=== PATIENT | male | born 1975 | race Caucasian/White ===

== ENCOUNTER 2017-01-24 18:45 | Emergency (ER) | payer MEDICAID ==
[2017-01-24] MEDS ORDERED: ACETAMINOPHEN 325 MG TABLET PO ONE (19:09)
--- NOTE | 2017-01-24 19:10 | ER Document Report ---
ED Medical Screen (RME) - General Stated Complaint: LEFT ANKLE INJURY Mode of Arrival: Wheelchair Information source: Patient Notes: Patient states he was jumping on a trampoline and landed on a ball and injured his left foot and ankle. Patient with swelling to left ankle. I have greeted and performed a rapid initial assessment of this patient. A comprehensive ED assessment and evaluation of the patient, analysis of test results and completion of the medical decision making process will be conducted by additional ED providers. TRAVEL OUTSIDE OF THE [place] IN LAST 30 DAYS: No COUNTRY TRAVELED TO/FROM: [place] - Related Data Allergies/Adverse Reactions: No Known Allergies Allergy (Verified 09/14/16 14:28) Past Medical History - Past Medical History Cardiac Medical History: Reports: Hx Hypertension Pulmonary Medical History: Reports: Hx COPD Endocrine Medical History: Denies: Hx Diabetes Mellitus Type 1, Hx Diabetes Mellitus Type 2 GI Medical History: Reports: Hx Gastroesophageal Reflux Disease - Immunizations Immunizations up to date: Yes Hx Diphtheria, Pertussis, Tetanus Vaccination: Yes - UTD Physical Exam - Vital signs Vitals: Temp Pulse Resp BP Pulse Ox 98.4 F 87 20 150/107 H 97 01/24/17 18:49 01/24/17 18:49 01/24/17 18:49 01/24/17 18:49 01/24/17 18:49 - Extremities General lower extremity: Tender - Left ankle Course - Vital Signs Vital signs: Temp Pulse Resp BP Pulse Ox 98.4 F 87 20 150/107 H 97 01/24/17 18:49 01/24/17 18:49 01/24/17 18:49 01/24/17 18:49 01/24/17 18:49
[2017-01-24] MEDS ORDERED: HYDROCODONE/ACETAMINOPHEN 5-325 MG TABLET PO ONE (22:19)
--- NOTE | 2017-01-24 22:22 | ER Document Report ---
ED Extremity Problem, Lower - General Chief Complaint: Ankle Pain Stated Complaint: LEFT ANKLE INJURY Mode of Arrival: Wheelchair Information source: Patient Notes: 41 y/o M presents to the emergency department complaining of left ankle pain and swelling. Patient reports was jumping on trampoline this afternoon when he lost his balance and rolled his ankle. Reports pain is worse with movement of ankle and attempts at weightbearing. Denies numbness, tingling, or color changes. TRAVEL OUTSIDE OF THE [place] IN LAST 30 DAYS: No - HPI Patient complains to provider of: Pain, Swelling Location: Ankle Occurred: This afternoon Onset/Duration: Sudden, Persistent Quality of pain: Achy Severity: Moderate Pain Level: 3 Context: Fell, Twisted Recent injury: Possibly Associated symptoms: School[place] a pop, Painful ambulation Exacerbated by: Movement, Walking Relieved by: Elevation, Ice, Rest - Related Data Allergies/Adverse Reactions: No Known Allergies Allergy (Verified 01/24/17 19:12) Past Medical History - General Information source: Patient - Social History Smoking Status: Current Every Day Smoker Chew tobacco use (# tins/day): No Frequency of alcohol use: None Drug Abuse: None Lives with: Family Family History: Reviewed & Not Pertinent Patient has suicidal ideation: No Patient has homicidal ideation: No - Past Medical History Cardiac Medical History: Reports: Hx Hypertension Pulmonary Medical History: Reports: Hx COPD Endocrine Medical History: Denies: Hx Diabetes Mellitus Type 1, Hx Diabetes Mellitus Type 2 Renal/ Medical History: Denies: Hx Peritoneal Dialysis GI Medical History: Reports: Hx Gastroesophageal Reflux Disease Surgical Hx: Negative - Immunizations Immunizations up to date: Yes Hx Diphtheria, Pertussis, Tetanus Vaccination: Yes - UTD Review of Systems - Review of Systems Constitutional: No symptoms reported EENT: No symptoms reported Cardiovascular: No symptoms reported Respiratory: No symptoms reported Gastrointestinal: No symptoms reported Genitourinary: No symptoms reported Male Genitourinary: No symptoms reported Musculoskeletal: See HPI Skin: No symptoms reported Hematologic/Lymphatic: No symptoms reported Neurological/Psychological: No symptoms reported -: Yes All other systems reviewed and negative Physical Exam - Vital signs Vitals: Temp Pulse Resp BP Pulse Ox 98.4 F 87 20 150/107 H 97 01/24/17 18:49 01/24/17 18:49 01/24/17 18:49 01/24/17 18:49 01/24/17 18:49 Interpretation: Normal - General General appearance: Appears well, Alert In distress: None - HEENT Head: Normocephalic, Atraumatic Eyes: Normal Pupils: PERRL - Respiratory Respiratory status: No respiratory distress Chest status: Nontender Breath sounds: Normal Chest palpation: Normal - Cardiovascular Rhythm: Regular Heart sounds: Normal auscultation Murmur: No Pulses: Normal: Radial, Posterior tibial, Dorsalis pedis Normal capillary refill: Yes - Abdominal Inspection: Normal Distension: No distension Bowel sounds: Normal Tenderness: Nontender Organomegaly: No organomegaly - Back Back: Normal, Nontender - Extremities General upper extremity: Normal inspection, Nontender, Normal color, Normal ROM , Normal strength, Normal temperature. No: Tender, Edema General lower extremity: Normal inspection, Nontender, Normal color, Normal ROM , Normal strength, Normal temperature, Normal weight bearing. No: Tender Knee: Normal, Nontender Calf: Normal, Nontender Ankle: Tender - Diffuse tenderness to palpation to left ankle mostly around lateral malleolus. Mild localized swelling. Limited range of motion due to pain. No gross instability or deformity. Neurovascular function intact with immediate capillary refill and intact distal sensation., Edema, Limited ROM. No : Deformity, Ecchymosis, Instability Foot: Normal, Nontender - Neurological Neuro grossly intact: Yes Cognition: Normal Orientation: AAOx4 Leobardo Coma Scale Eye Opening: Spontaneous [place] Coma Scale Verbal: Oriented Leobardo Coma Scale Motor: Obeys Commands Leobardo Coma Scale Total: 15 Speech: Normal Motor strength normal: LUE, RUE, LLE, RLE Sensory: Normal - Psychological Associated symptoms: Normal affect, Normal mood - Skin Skin Temperature: Warm Skin Moisture: Dry Skin Color: Normal Course - Re-evaluation Re-evalutation: 01/24/17 22:22 Patient hemodynamically stable, in no distress. Avulsion-type fracture to left lateral malleolus with no other osseous injury of the ankle or foot on x-ray. Neurovascular function intact. Ankle stirrup splint placed and crutches provided with instructions on use. Patient is stable for discharge and agrees with home care, follow-up with PCP and orthopedics, and ED return precautions. - Vital Signs Vital signs: Temp Pulse Resp BP Pulse Ox 98.4 F 87 20 150/107 H 97 01/24/17 18:49 01/24/17 18:49 01/24/17 18:49 01/24/17 18:49 01/24/17 18:49 - Diagnostic Test Radiology reviewed: Image reviewed, Reports reviewed Procedures - Immobilization Left Ankle Time completed: 22:26 Pre-Proc Neuro Vasc Exam: Normal Immobilizer type: Ankle stirrup, Crutches Performed by: RN Post-Proc Neuro Vasc Exam: Normal Alignment checked and good: Yes Discharge - Discharge Clinical Impression: Avulsion fracture of left ankle Qualifiers: Encounter type: initial encounter Fracture type: closed Qualified Code(s): S82.892A - Other fracture of left lower leg, initial encounter for closed fracture Condition: Stable Disposition: HOME, SELF-CARE Instructions: Avulsion Fracture of the Ankle ([facility]), Ice & Elevation ([facility]), Use of Crutches ([facility]), Anti-Inflammatory Medication ([facility]), Ultram ([facility]) Additional Instructions: Follow-up with your primary care provider next week as discussed. Return to the emergency department for any worsening symptoms or concerns. Prescriptions: Tramadol HCl [Ultram] 50 mg PO Q8HP PRN #10 tablet PRN Reason: Naproxen 500 mg PO BIDP PRN #10 tablet PRN Reason: Forms: Elevated Blood Pressure Referrals: [facility] [Provider Group] - Follow up as needed
[2017-01-24] MEDS ORDERED: TRAMADOL HCL 50 MG TABLET PO ONE (22:23)
[2017-01-24] MEDS ORDERED: NAPROXEN 250 MG TABLET PO ONE (22:23)
[2017-01-24 22:56] VITALS: BP 134/80
== END 2017-01-24 22:55 | disposition home or self-care (01) ==
LOC: ER 18:45
DX: S82.62XA Displaced fracture of lateral malleolus of left fibula, initial encounter for closed fracture (principal); X50.0XXA Overexertion from strenuous movement or load, initial encounter; Y93.44 Activity, trampolining; F17.200 Nicotine dependence, unspecified, uncomplicated; I10 Essential (primary) hypertension; E11.9 Type 2 diabetes mellitus without complications; J44.9 Chronic obstructive pulmonary disease, unspecified
CPT/HCPCS: 99283; 73610; 73630; L1902; J3490 ×2

== ENCOUNTER 2017-02-12 18:03 | Emergency (ER) | payer MEDICAID ==
[2017-02-12 18:21] VITALS: BP 115/71
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
== END 2017-02-12 22:10 | disposition left against medical advice (07) ==
LOC: ER 18:03
DX: S61.213A Laceration without foreign body of left middle finger without damage to nail, initial encounter (principal); S61.215A Laceration without foreign body of left ring finger without damage to nail, initial encounter; W25.XXXA Contact with sharp glass, initial encounter; E11.9 Type 2 diabetes mellitus without complications; I10 Essential (primary) hypertension; J44.9 Chronic obstructive pulmonary disease, unspecified
CPT/HCPCS: 99281

== ENCOUNTER 2017-05-20 10:23 | Emergency (ER) | payer MEDICAID ==
[2017-05-20 10:57] VITALS: BP 185/125
[2017-05-20] MEDS ORDERED: IBUPROFEN 600 MG TABLET PO ONE (12:19)
[2017-05-20] MEDS ORDERED: CEPHALEXIN 500 MG CAPSULE PO ONE (12:19)
[2017-05-20] MEDS ORDERED: DIPH/PERTUSS(ACELL)/TETANUS VAC/PF 0.5 ML SYR (>=10YO) IM ONE (12:24)
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
== END 2017-05-20 13:19 | disposition home or self-care (01) ==
LOC: ER 10:23
DX: L03.115 Cellulitis of right lower limb (principal); L90.5 Scar conditions and fibrosis of skin; E11.9 Type 2 diabetes mellitus without complications; I10 Essential (primary) hypertension; J44.9 Chronic obstructive pulmonary disease, unspecified; F17.200 Nicotine dependence, unspecified, uncomplicated; Z23 Encounter for immunization
CPT/HCPCS: 99283; 90471; 90715; J3490

== ENCOUNTER 2017-10-31 10:24 | Emergency (ER) | payer MEDICAID ==
[2017-10-31 10:29] VITALS: BP 143/95
--- NOTE | 2017-10-31 11:38 | RADIOLOGY REPORT (SQ) ---
EXAM DESCRIPTION: SHOULDER LEFT 2 OR MORE VIEWS COMPLETED DATE/TIME: 10/31/2017 11:30 am REASON FOR STUDY: pain and injury COMPARISON: None. NUMBER OF VIEWS: Three views. TECHNIQUE: Internal rotation, external rotation, and Y view images acquired of the left shoulder. LIMITATIONS: None. FINDINGS: MINERALIZATION: Normal. BONES: No acute fracture or dislocation. No worrisome bone lesions. JOINTS: No dislocation. VISUALIZED LUNGS AND RIBS: No pneumothorax. No rib fracture. SOFT TISSUES: No radiopaque foreign body. OTHER: No other significant finding. IMPRESSION: NEGATIVE STUDY OF THE LEFT SHOULDER. NO RADIOGRAPHIC EVIDENCE OF ACUTE INJURY. TECHNICAL DOCUMENTATION: JOB ID: [id number] [employer]- All Rights Reserved
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
[2017-10-31] MEDS ORDERED: LIDOCAINE 5% (700 MG) TRANSDERMAL ADH..PATCH TP ONE (11:56)
[2017-10-31] MEDS ORDERED: NAPROXEN 250 MG TABLET PO ONE (11:56)
== END 2017-10-31 12:14 | disposition home or self-care (01) ==
LOC: ER 10:24
DX: M25.512 Pain in left shoulder (principal); X50.0XXA Overexertion from strenuous movement or load, initial encounter; I10 Essential (primary) hypertension; J44.9 Chronic obstructive pulmonary disease, unspecified; F17.210 Nicotine dependence, cigarettes, uncomplicated
CPT/HCPCS: 99283; 73030; J3490 ×2

== ENCOUNTER → 2017-11-28 | Day surgery (SDC) | payer MEDICAID ==
[~2017-11-28] MED LIST: BUPIVACAINE HCL 0.5 % INJ/PF 30 ML SDV ONE; LIDOCAINE 1% INJ-PF (10 MG/ML) 30 ML SDV ONE; METHYLPREDNISOLONE ACETATE INJ 40 MG/1 ML ML ONE
--- NOTE | 2017-11-28 16:43 | RADIOLOGY REPORT (SQ) ---
EXAM DESCRIPTION: HIP UNILATERAL-1 VIEW; INJECT/ASPIR HIP/SHLDR/KNEE; FLUORO/NEEDLE PLACEMENT COMPLETED DATE/TIME: 11/28/2017 3:39 pm REASON FOR STUDY: RIGHT HIP PAIN (M25.551) M25.551 PAIN IN RIGHT HIP COMPARISON: Hip films 11/29/2016, 11/04/2016 FLUOROSCOPY TIME: 0.9 minutes 1 digital radiographic images saved to PACS. LIMITATIONS: None. PROCEDURE: SITE OF INJECTION: Right hip joint LOCALIZING CONTRAST TYPE AND DOSE: 1 mL of Isovue-300 injected to confirm intra articular needle plac ement MEDICATION TYPE AND DOSE: 80 mg of Depo-Medrol, 0.5 mL of 0.5% bupivacaine Using local anesthesia and sterile technique with fluoroscopic guidance, a 22 gauge spinal needle was advanced into the joint. Iodinated contrast was injected to verify intraarticular placement. This w as followed by therapeutic injection of the indicated medications. The needle was removed. There we re no immediate complications. Preprocedure pain level: 7/10. Postprocedure pain level: 4/10. IMPRESSION: THERAPEUTIC INJECTION OF THE RIGHT HIP JOINT ABOVE. COMMENT: Patient medication list reviewed: Yes- Quality ID# [id number]:Eligible professional attests to doc umenting in the medical record they obtained, updated, or reviewed the patient's current medications. . Quality ID [id number]: Final reports for procedures using fluoroscopy that document radiation exposure yvette najma, or exposure time and number of fluorographic images (if radiation exposure indices are not avail able) TECHNICAL DOCUMENTATION: JOB ID: [id number] [employer]- All Rights Reserved
== END ==
LOC: RAD 14:19
PROVIDERS: ATTEND Physician Assistant
PROC: 3E0U33Z Introduction of Anti-inflammatory into Joints, Percutaneous Approach (ICD-10-PCS; principal; 2017-11-28)
DX: M25.551 Pain in right hip (principal)
CPT/HCPCS: 73501; 20610; 77002; J3490; J1020

== ENCOUNTER → 2018-01-07 | Outpatient (CLI) | payer MEDICAID ==
--- NOTE | 2018-01-07 14:15 | RADIOLOGY REPORT (SQ) ---
EXAM DESCRIPTION: MRI LT UPPER JOINT WITHOUT COMPLETED DATE/TIME: 01/07/2018 1:18 pm REASON FOR STUDY: LT SHOULDER PAIN (M25.512) M25.512 PAIN IN LEFT SHOULDER COMPARISON: None. TECHNIQUE: Left shoulder images acquired and stored on PACS. Multiplanar imaging to include fat sens itive sequences such as T1, water sensitive sequences such as FST2/STIR, cartilage sensitive sequence s such as FSPD/gradient-echo sequences. LIMITATIONS: None. FINDINGS: BONE MARROW AND CORTEX: No marrow signal abnormalities worrisome for occult fracture. The re is edema in the distal clavicle and acromion at the AC joint. JOINT OR BURSAL EFFUSION: No significant joint or bursal fluid. No suggestion of loose bodies. GLENO-HUMERAL ARTICULATION: Normal articulation. No subluxation. No cystic change. No osteophytes or cartilage loss. ACROMION AND AC JOINT: Type 1 acromion, narrowing the subacromial space. There is edema in the dista l clavicle and acromion at the acromioclavicular joint with synovial thickening. No bulky bony spurr ing. These findings are best shown on coronal images 7-11, and sagittal images 8-12. ROTATOR CUFF AND INTERVAL: No significant tear or signal alteration. No cuff muscle atrophy. No rotator interval tear. No rotator interval thickening to suggest adhesive capsulitis. LABRUM AND BICEPS LABRAL COMPLEX: Intra-articular long head biceps tendon intact. Biceps insertion on the labrum intact. There is a small posterosuperior labral tear with 2 mm paralabral cyst, best shown on sagittal image 13, axial image 6 and coronal image 10. Remainder of the superior labrum is otherwise unremarkable REMAINDER OF LABRUM AND IGHL : No gross tear or paralabral cyst formation. Labral evaluation is less than optimal without joint distention. No thickening of IGHL to suggest adhesive capsulitis. PERIARTICULAR AND ADJACENT SOFT TISSUES: No masses or abnormal nodes. OTHER: No other significant finding. IMPRESSION: Acromioclavicular joint arthropathy Tiny posterosuperior labral tear with 2 mm paralabral cyst TECHNICAL DOCUMENTATION: JOB ID: [id number] [employer]- All Rights Reserved
== END ==
LOC: RAD 12:28
PROVIDERS: ATTEND Physician Assistant
DX: M25.512 Pain in left shoulder (principal); M12.812 Other specific arthropathies, not elsewhere classified, left shoulder

== ENCOUNTER → 2018-02-12 | Outpatient (CLI) | payer MEDICAID ==
--- NOTE | 2018-02-12 10:01 | RADIOLOGY REPORT (SQ) ---
EXAM DESCRIPTION: U/S ABDOMEN LIMITED W/O DOP COMPLETED DATE/TIME: 02/12/2018 9:43 am REASON FOR STUDY: NAUSEA WITH VOMTING R11.2 NAUSEA WITH VOMITING, UNSPECIFIED COMPARISON: None. TECHNIQUE: Dynamic and static grayscale images acquired of the abdomen and recorded on PACS. Additio nal selected color Doppler and spectral images recorded. LIMITATIONS: None. FINDINGS: PANCREAS: No masses. Visualized pancreatic duct normal caliber. LIVER: No masses. Echotexture normal. LIVER VASCULATURE: Normal directional flow of the main portal vein and hepatic veins. GALLBLADDER: No stones. Normal wall thickness. No pericholecystic fluid. ULTRASOUND-DETECTED BERMAN'S SIGN: Negative. INTRAHEPATIC DUCTS AND COMMON DUCT: CBD and intrahepatic ducts normal caliber. No filling defects. INFERIOR VENA CAVA: Normal flow. AORTA: Proximal and mid aorta normal caliber. Distal aorta obscured by bowel gas. RIGHT KIDNEY: Normal size. Normal echogenicity. 1.5 cm cyst. No solid or suspicious masses. No hyd ronephrosis. No calcifications. PERITONEAL AND RIGHT PLEURAL SPACE: No ascites or effusions. OTHER: No other significant findings. IMPRESSION: 1.5 CM CYST IN THE RIGHT KIDNEY. OTHERWISE UNREMARKABLE RIGHT UPPER QUADRANT ULTRASOUND . TECHNICAL DOCUMENTATION: JOB ID: [id number] [employer]- All Rights Reserved Reading location - IP/workstation name: [facility]
== END ==
LOC: RAD 08:13
PROVIDERS: ATTEND Internal Medicine Gastroenterology
DX: R11.2 Nausea with vomiting, unspecified (principal)
CPT/HCPCS: 76705

== ENCOUNTER → 2018-02-23 | Outpatient (CLI) | payer MEDICAID ==
[2018-02-23 12:10] LABS: ABSOLUTE BASOPHILS # (AUTO) 0.1 10^3/uL (0.0-0.2); ABSOLUTE EOSINOPHILS # (AUTO) 0.2 10^3/uL (0.0-0.6); ABSOLUTE LYMPHOCYTES (AUTO) 2.2 10^3/uL (0.5-4.7); ABSOLUTE MONOCYTES (AUTO) 0.8 10^3/uL (0.1-1.4); ABSOLUTE NEUT (AUTO) 8.1 10^3/uL (1.7-8.2); BASOPHILS % (AUTO) 0.5 % (0-2); EOSINOPHILS % (AUTO) 1.4 % (0-6); HEMATOCRIT 48.4 % (37.9-51.0); LYMPHOCYTES % (AUTO) 19.4 % (13-45); MEAN CORPUSCULAR HEMOGLOBIN 32.4 pg (27.0-33.4); MEAN CORPUSCULAR HGB CONC 35.1 g/dL (32.0-36.0); MEAN CORPUSCULAR VOLUME 92 fl (80-97); MONOCYTES % (AUTO) 7.2 % (3-13); PLATELET COUNT 356 10^3/uL (150-450); RED BLOOD COUNT 5.25 10^6/uL (4.35-5.55); RED CELL DISTRIBUTION WIDTH 14.4 % (11.5-14.0); SEGMENTED NEUTROPHILS % (AUTO) 71.5 % (42-78); TOTAL CELLS COUNTED % (AUTO) 100 %; WHITE BLOOD COUNT 11.4 10^3/uL (4.0-10.5)
[2018-02-23 12:40] LABS: ALANINE AMINOTRANSFERASE 34 U/L (21-72); ALBUMIN 4.9 g/dL (3.5-5.0); ALKALINE PHOSPHATASE 80 U/L (38-126); ANION GAP 10 (5-19); ASPARTATE AMINO TRANSFERASE 20 U/L (17-59); BILIRUBIN,DIRECT 0.4 mg/dL (0.0-0.4); BILIRUBIN,TOTAL 0.4 mg/dL (0.2-1.3); BLOOD UREA NITROGEN 17 mg/dL (7-20); CALCIUM 10.5 mg/dL (8.4-10.2); CARBON DIOXIDE 26 mmol/L (22-30); CHLORIDE 102 mmol/L (98-107); GLUCOSE 111 mg/dL (75-110); SODIUM 138.4 mmol/L (137-145); TOTAL PROTEIN 8.3 g/dL (6.3-8.2)
--- NOTE | 2018-02-23 14:13 | EKG REPORT ---
SEVERITY:- NORMAL ECG - SINUS RHYTHM : Confirmed by: Richar Desai MD 23-Feb-2018 14:12:46
== END ==
LOC: OD 11:00
PROVIDERS: ATTEND Orthopaedic Surgery Sports Medicine
DX: I10 Essential (primary) hypertension (principal); Z11.2 Encounter for screening for other bacterial diseases
CPT/HCPCS: 36415; 80053; 85025; 87070; 93005; 93010

== ENCOUNTER → 2018-03-09 | Outpatient (CLI) | payer MEDICAID ==
--- NOTE | 2018-03-09 11:58 | RADIOLOGY REPORT (SQ) ---
EXAM DESCRIPTION: NM GASTRIC EMPTYING STUDY COMPLETED DATE/TIME: 03/09/2018 11:28 am REASON FOR STUDY: EARLY SATIETY (R68.81), N/V (R11.2), ABD TENDERNESS (R10.816) R68.81 EARLY SATIET Y R11.2 NAUSEA WITH VOMITING, UNSPECIFIED R10.816 EPIGASTRIC ABDOMINAL TENDERNESS COMPARISON: Abdominal ultrasound 02/12/2018 RADIONUCLIDE AND DOSE: 2.2 millicuries Tc-99m Sulfur Colloid. The route of agent administration: Oral. TECHNIQUE: Serial images acquired to 90 minutes with each image recorded over a 2-minute time frame. Image intensity values plotted with respect to time with linear regression algorithm. LIMITATIONS: None. FINDINGS: Gastric emptying was calculated as follows: At 30 minutes, 20% gastric emptying At 60 minutes, 40% gastric emptying At 90 minutes, 60% gastric emptying At 120 minutes, 80% gastric emptying At 180 minutes, 100% gastric emptying IMPRESSION: NORMAL GASTRIC EMPTYING. TECHNICAL DOCUMENTATION: JOB ID: [id number] [employer]- All Rights Reserved Reading location - IP/workstation name: [email or web address]
== END ==
LOC: RAD 07:45
PROVIDERS: ATTEND Internal Medicine Gastroenterology
DX: R11.2 Nausea with vomiting, unspecified (principal); R68.81 Early satiety; R10.816 Epigastric abdominal tenderness
CPT/HCPCS: 78264; A9541

== ENCOUNTER 2018-03-30 15:12 | Emergency (ER) | payer MEDICAID ==
[2018-03-30] MEDS ORDERED: NORMAL SALINE 1000 ML 1,000 ML IV ONE ×2 (16:23→17:30)
[2018-03-30] MEDS ORDERED: VANCOMYCIN HCL INJ 1000 MG VIAL IV ONE ×2 (16:24→20:00)
--- NOTE | 2018-03-30 16:25 | ER Document Report ---
ED Medical Screen (RME) - General Chief Complaint: Fever Stated Complaint: DIZZY,FEVER,WEAK, ANKLE PAIN Time Seen by Provider: 03/30/18 16:23 Notes: Patient states approximately 2 days ago he fell through the floor of a wood shed. He states he had a long splinter in his right ankle area. He removed the splinter of wood. He states he went to sleep and then when he awoke from a nap he noticed that his right ankle was swollen red and painful. He states it is gotten worse over the last 2 days. He now feels dizzy lightheaded and has a headache. TRAVEL OUTSIDE OF THE [place] IN LAST 30 DAYS: No - Related Data Allergies/Adverse Reactions: No Known Allergies Allergy (Verified 10/31/17 10:27) Home Medications: lisinopril. meloxacam Past Medical History - Social History Chew tobacco use (# tins/day): No Frequency of alcohol use: Occasional Drug Abuse: None - Past Medical History Cardiac Medical History: Reports: Hx Hypertension Pulmonary Medical History: Reports: Hx COPD Endocrine Medical History: Denies: Hx Diabetes Mellitus Type 1, Hx Diabetes Mellitus Type 2 Renal/ Medical History: Denies: Hx Peritoneal Dialysis GI Medical History: Reports: Hx Gastroesophageal Reflux Disease, Hx Ulcer Musculoskeltal Medical History: Reports Hx Musculoskeletal Deformity, Reports Hx Musculoskeletal Trauma Traumatic Medical History: Reports: Hx Fractures - radius - Immunizations Immunizations up to date: Yes Hx Diphtheria, Pertussis, Tetanus Vaccination: Yes - UTD Physical Exam - Vital signs Vitals: Temp Pulse Resp BP Pulse Ox 98.6 F 125 H 16 104/64 97 03/30/18 15:52 03/30/18 15:52 03/30/18 15:52 03/30/18 15:52 03/30/18 15:52 Course - Vital Signs Vital signs: Temp Pulse Resp BP Pulse Ox 98.6 F 125 H 16 104/64 97 03/30/18 15:52 03/30/18 15:52 03/30/18 15:52 03/30/18 15:52 03/30/18 15:52 Doctor's Discharge - Discharge Referrals: NIK COBURN MD [Primary Care Provider] - Follow up as needed
[2018-03-30] MEDS ORDERED: PIPERACILLIN/TAZOBACTAM 3.375 GM VIAL IV ONE (16:26)
[2018-03-30] MEDS ORDERED: ONDANSETRON HCL INJ/PF 4 MG/2 ML SDV IV ONE (17:42)
[2018-03-30] MEDS ORDERED: PROCHLORPERAZINE EDISYLATE INJ 10 MG/2 ML VIAL IV ONE (17:42)
[2018-03-30 17:58] LABS: VENOUS BLOOD BASE EXCESS 1.4 mmol/L; VENOUS BLOOD PCO2 32.5 mmHg (35-63); VENOUS BLOOD PH 7.49 (7.30-7.42)
[2018-03-30 18:01] LABS: ABSOLUTE LYMPHOCYTES (AUTO) 1.9 10^3/uL (0.5-4.7); ABSOLUTE MONOCYTES (AUTO) 1.2 10^3/uL (0.1-1.4); ABSOLUTE NEUT (AUTO) 14.4 10^3/uL (1.7-8.2); BASOPHILS % (AUTO) 0.3 % (0-2); EOSINOPHILS % (AUTO) 0.1 % (0-6); HEMATOCRIT 41.9 % (37.9-51.0); HEMOGLOBIN 14.9 g/dL (13.5-17.0); MEAN CORPUSCULAR HEMOGLOBIN 32.1 pg (27.0-33.4); MEAN CORPUSCULAR HGB CONC 35.5 g/dL (32.0-36.0); MEAN CORPUSCULAR VOLUME 91 fl (80-97); MONOCYTES % (AUTO) 6.7 % (3-13); PLATELET COUNT 329 10^3/uL (150-450); RED BLOOD COUNT 4.63 10^6/uL (4.35-5.55); RED CELL DISTRIBUTION WIDTH 13.4 % (11.5-14.0); SEGMENTED NEUTROPHILS % (AUTO) 81.9 % (42-78); TOTAL CELLS COUNTED % (AUTO) 100 %; WHITE BLOOD COUNT 17.6 10^3/uL (4.0-10.5)
[2018-03-30 18:15] LABS: ALANINE AMINOTRANSFERASE 22 U/L (21-72); ALBUMIN 4.5 g/dL (3.5-5.0); ALKALINE PHOSPHATASE 83 U/L (38-126); ANION GAP 15 (5-19); ASPARTATE AMINO TRANSFERASE 45 U/L (17-59); BILIRUBIN,DIRECT 0.5 mg/dL (0.0-0.4); BILIRUBIN,TOTAL 0.8 mg/dL (0.2-1.3); BLOOD UREA NITROGEN 14 mg/dL (7-20); CALCIUM 9.3 mg/dL (8.4-10.2); CARBON DIOXIDE 23 mmol/L (22-30); CHLORIDE 88 mmol/L (98-107); GLUCOSE 104 mg/dL (75-110); POTASSIUM 3.7 mmol/L (3.6-5.0); SODIUM 126.1 mmol/L (137-145)
--- NOTE | 2018-03-30 18:19 | RADIOLOGY REPORT (SQ) ---
EXAM DESCRIPTION: ANKLE RIGHT COMPLETE COMPLETED DATE/TIME: 03/30/2018 6:11 pm REASON FOR STUDY: medial cellulitis COMPARISON: None. NUMBER OF VIEWS: Three views. TECHNIQUE: AP, lateral, and oblique radiographic images acquired of the right ankle. LIMITATIONS: None. FINDINGS: MINERALIZATION: Normal. BONES: No acute fracture or dislocation. No worrisome bone lesions. JOINTS: No effusions. SOFT TISSUES: No soft tissue swelling. No foreign body. OTHER: No other significant finding. IMPRESSION: NEGATIVE STUDY OF THE RIGHT ANKLE. NO RADIOGRAPHIC EVIDENCE OF ACUTE INJURY. No radio o paque foreign body. COMMENT: Consider ultrasound of if suspect persistent foreign body. . TECHNICAL DOCUMENTATION: JOB ID: [id number] [employer]- All Rights Reserved Reading location - IP/workstation name: [email or web address]
[2018-03-30] MEDS ORDERED: KETOROLAC TROMETHAMINE INJ/PF 30 MG/1 ML SDV IV ONE (18:22)
[2018-03-30 19:57] LABS: APPEARANCE,URINE CLEAR; BILIRUBIN,URINE NEGATIVE (NEGATIVE); COLOR,URINE YELLOW; GLUCOSE, URINE NEGATIVE (NEGATIVE); KETONES,URINE NEGATIVE (NEGATIVE); LEUKOCYTE ESTERASE,URINE NEGATIVE (NEGATIVE); NITRITE,URINE NEGATIVE (NEGATIVE); PROTEIN,URINE NEGATIVE (NEGATIVE); URINE SPECIFIC GRAVITY 1.008; UROBILINOGEN,URINE NEGATIVE mg/dL (<2.0)
[2018-03-30 20:17] LABS: URINE AMPHETAMINES SCREEN NEGATIVE; URINE BARBITURATES SCREEN NEGATIVE; URINE BENZODIAZEPINES SCREEN UNCONFIRMED POSITIVE; URINE COCAINE SCREEN NEGATIVE; URINE MARIJUANA (THC) SCREEN UNCONFIRMED POSITIVE; URINE METHADONE SCREEN NEGATIVE; URINE PHENCYCLIDINE SCREEN NEGATIVE
[2018-03-30] MEDS ORDERED: CEPHALEXIN 500 MG CAPSULE PO ONE (21:03)
--- NOTE | 2018-03-30 21:45 | ER Document Report ---
ED General - General Chief Complaint: Fever Stated Complaint: DIZZY,FEVER,WEAK, ANKLE PAIN Time Seen by Provider: 03/30/18 16:23 TRAVEL OUTSIDE OF THE [place] IN LAST 30 DAYS: No - HPI Patient complains to provider of: Fevers dizziness ankle pain Notes: Patient coming in for right ankle pain. Patient states had a splinter in his ankle this is on Friday now has diffuse redness. Patient also states fever at home however did not take a temperature. Patient also complaining of diffuse weakness and dizziness. Patient sent to be tachycardic upon his evaluation in triage. Patient states she has not been eating or drinking as much as he normally has. Patient otherwise denies any other complaints denies any nausea vomiting diarrhea chest pain abdominal pain. Patient looks to be otherwise stable. - Related Data Allergies/Adverse Reactions: No Known Allergies Allergy (Verified 10/31/17 10:27) Home Medications: lisinopril. meloxacam Past Medical History - Social History Smoking Status: Current Every Day Smoker Chew tobacco use (# tins/day): No Frequency of alcohol use: Occasional Drug Abuse: None Family History: Arthritis, CAD, COPD, CVA, DM, Hyperlipidemia, Hypertension Patient has suicidal ideation: No Patient has homicidal ideation: No - Past Medical History Cardiac Medical History: Reports: Hx Hypertension Pulmonary Medical History: Reports: Hx COPD Endocrine Medical History: Denies: Hx Diabetes Mellitus Type 1, Hx Diabetes Mellitus Type 2 Renal/ Medical History: Denies: Hx Peritoneal Dialysis GI Medical History: Reports: Hx Gastroesophageal Reflux Disease, Hx Ulcer Musculoskeltal Medical History: Reports Hx Musculoskeletal Deformity, Reports Hx Musculoskeletal Trauma Traumatic Medical History: Reports: Hx Fractures - radius - Immunizations Immunizations up to date: Yes Hx Diphtheria, Pertussis, Tetanus Vaccination: Yes - UTD Review of Systems - Review of Systems Constitutional: Fever, Weakness EENT: No symptoms reported Cardiovascular: No symptoms reported Respiratory: No symptoms reported Gastrointestinal: No symptoms reported Genitourinary: No symptoms reported Male Genitourinary: No symptoms reported Musculoskeletal: Other - Redness right ankle Skin: No symptoms reported Hematologic/Lymphatic: No symptoms reported Neurological/Psychological: No symptoms reported -: Yes All other systems reviewed and negative Physical Exam - Vital signs Vitals: Temp Pulse Resp BP Pulse Ox 98.6 F 125 H 16 104/64 97 03/30/18 15:52 03/30/18 15:52 03/30/18 15:52 03/30/18 15:52 03/30/18 15:52 Interpretation: Normal - General General appearance: Appears well, Alert - HEENT Head: Normocephalic, Atraumatic Eyes: Normal Pupils: PERRL - Respiratory Respiratory status: No respiratory distress Chest status: Nontender Breath sounds: Normal Chest palpation: Normal - Cardiovascular Rhythm: Regular Heart sounds: Normal auscultation Murmur: No - Abdominal Inspection: Normal Distension: No distension Bowel sounds: Normal Tenderness: Nontender Organomegaly: No organomegaly - Back Back: Normal, Nontender - Extremities General upper extremity: Normal inspection, Nontender, Normal color, Normal ROM , Normal temperature General lower extremity: Nontender, Normal color, Normal ROM, Normal temperature , Normal weight bearing. No: Normal inspection - Warmth and erythema to the malleolus with a mild amount of swelling with a history of a splinter being in the skin was consistent with cellulitis do not think gout at this time., Aren' s sign - Neurological Neuro grossly intact: Yes Cognition: Normal Orientation: AAOx4 [employer] Coma Scale Eye Opening: Spontaneous Leobardo Coma Scale Verbal: Oriented [employer] Coma Scale Motor: Obeys Commands [employer] Coma Scale Total: 15 Speech: Normal Motor strength normal: LUE, RUE, LLE, RLE Sensory: Normal - Psychological Associated symptoms: Normal affect, Normal mood - Skin Skin Temperature: Warm Skin Moisture: Dry Skin Color: Normal Course - Re-evaluation Re-evalutation: 03/30/18 23:02 Laboratory studies shows signs of dehydration along with leukocytosis. Patient looks to have a cellulitis. No elevation of lactic acid. Patient feeling better after fluid hydration. Patient is able tolerate p.o. At this time patient has improved his vital signs not see need for admission for IV antibiotics. Patient was given a dose of Keflex and able tolerate. Patient will be discharged home informed to follow-up with PCP return if symptoms worsen. Patient got database that showed multiple narcotic prescriptions recently filled March 10 oxycodone 50 tablets March 19 120 tablets of tramadol March 20 40 tablets of oxycodone again. Patient did not receive any narcotics prescriptions - Vital Signs Vital signs: Temp Pulse Resp BP Pulse Ox 98.1 F 125 H 17 110/79 94 03/30/18 22:28 03/30/18 15:52 03/30/18 22:01 03/30/18 22:01 03/30/18 22:01 - Laboratory Result Diagrams: 03/30/18 17:40 03/30/18 17:40 Laboratory results interpreted by me: 03/30/18 03/30/18 03/30/18 17:40 17:40 17:40 WBC 17.6 H Seg Neutrophils % 81.9 H Lymphocytes % 11.0 L Absolute Neutrophils 14.4 H VBG pH 7.49 H VBG pCO2 32.5 L Sodium 126.1 L Chloride 88 L Direct Bilirubin 0.5 H Discharge - Discharge Clinical Impression: Cellulitis of right ankle Condition: Good Disposition: HOME, SELF-CARE Instructions: Cellulitis ([facility]) Additional Instructions: Your evaluation today shows a skin infection of the right ankle which is call cellulitis. Please continue to take the antibiotics as prescribed. Return to ER if symptoms worsen. Please continue your home medication and your prescribed pain medications as indicated by records. Prescriptions: Cephalexin Monohydrate [Keflex 500 mg Capsule] 500 mg PO QID #28 capsule Referrals: NIK COBURN MD [Primary Care Provider] - Follow up in 3-5 days
[2018-03-30 22:28] VITALS: BP 110/79
== END 2018-03-30 22:29 | disposition home or self-care (01) ==
LOC: ER 15:12
DX: L03.115 Cellulitis of right lower limb (principal); W17.89XA Other fall from one level to another, initial encounter; R50.9 Fever, unspecified; R42 Dizziness and giddiness; R53.1 Weakness; I10 Essential (primary) hypertension; F17.200 Nicotine dependence, unspecified, uncomplicated
CPT/HCPCS: 99284; 96361; 96375; 96365; 96366; 96367; 36415; 87040; 87086; 85025; 80053; 81001; 80307; 82803; 83605; 73610; J1885; J0780; J2405; J7030; J3370; J2543

== ENCOUNTER 2019-05-17 08:13 | Emergency (ER) | payer MEDICAID ==
--- NOTE | 2019-05-17 09:04 | ER Document Report ---
HPI - HPI Patient complains to provider of: Right hip pain Time Seen by Provider: 05/17/19 08:53 Onset: Other - Past weekend Onset/Duration: Persistent Quality of pain: Achy Severity: Severe Pain Level: 4 Context: Patient presents emergency department with complaints of right hip pain. 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 Reports he needs a hip replacement but cannot afford it. Reports he was walking and felt like his hip dislocated this weekend. Denies trauma. Reports he was just walking. Complains of pain now with movement or walking. No other complaints such as fever vomiting diarrhea. Associated Symptoms: None Exacerbated by: Movement, Walking Relieved by: Denies Similar symptoms previously: Yes Recently seen / treated by doctor: No - REPRODUCTIVE Reproductive: DENIES: : Past Medical History - General Information source: Patient - Social History Smoking Status: Current Every Day Smoker Cigarette use (# per day): Yes Frequency of alcohol use: Occasional Drug Abuse: None Occupation: None Family History: Arthritis, CAD, COPD, CVA, DM, Hyperlipidemia, Hypertension Patient has suicidal ideation: No Patient has homicidal ideation: No - Past Medical History Cardiac Medical History: Reports: Hx Hypertension Pulmonary Medical History: Reports: Hx COPD Endocrine Medical History: Denies: Hx Diabetes Mellitus Type 1, Hx Diabetes Mellitus Type 2 Renal/ Medical History: Denies: Hx Peritoneal Dialysis GI Medical History: Reports: Hx Gastroesophageal Reflux Disease, Hx Ulcer Musculoskeletal Medical History: Reports Hx Musculoskeletal Deformity, Reports Hx Musculoskeletal Trauma, Reports Other - legg calve perthes Traumatic Medical History: Reports: Hx Fractures - radius Past Surgical History: Reports: Hx Orthopedic Surgery - Immunizations Immunizations up to date: Yes Hx Diphtheria, Pertussis, Tetanus Vaccination: Yes - UTD Vertical Provider Document - CONSTITUTIONAL Agree With Documented VS: Yes Exam Limitations: No Limitations General Appearance: WD/WN, No Apparent Distress - INFECTION CONTROL TRAVEL OUTSIDE OF THE [place] IN LAST 30 DAYS: No - HEENT HEENT: Atraumatic, Normocephalic - NECK Neck: Supple - RESPIRATORY Respiratory: No Respiratory Distress - CARDIOVASCULAR Cardiovascular: Regular Rate - MUSCULOSKELETAL/EXTREMETIES Musculoskeletal/Extremeties: MAEW, FROM, Tender - Right hip tender to palpate no erythema no swelling no warmth no obvious deformity good pedal pulse complains of pain with flexion, - NEURO Level of Consciousness: Awake, Alert, Appropriate Motor/Sensory: No Motor Deficit - DERM Integumentary: Warm, Dry Adult Front & Back Diagram: 1 - Patient reports pain Course - Vital Signs Vital signs: Temp Pulse Resp BP Pulse Ox 98 F 99 18 137/97 H 97 05/17/19 08:20 05/17/19 08:20 05/17/19 08:20 05/17/19 08:20 05/17/19 08:20 Discharge - Discharge Clinical Impression: Right hip pain Condition: Stable Disposition: HOME, SELF-CARE Instructions: Use of Hvsk-Luj-Zkfztmd Ibuprofen ([facility]) Additional Instructions: *You have been evaluated for right hip pain *Take ibuprofen as indicated for the pain *Rest/Ice/Elevate *Follow up with orthopedics in 1 week for evaluation of hip replacement as in dicated *Return to ED for worsening condition, changes, needs Monitor your blood pressure. Your blood pressure was elevated today. This may be because you were anxious, in pain or because you need medication. It is important to follow up with your primary care provider for full evaluation. Forms: Elevated Blood Pressure Referrals: NIK COBURN MD [Primary Care Provider] - Follow up in 1 week [facility] [Provider Group] - Follow up in 1 week
--- NOTE | 2019-05-17 09:50 | RADIOLOGY REPORT (SQ) ---
EXAM DESCRIPTION: HIP RIGHT AP/LATERAL COMPLETED DATE/TIME: 05/17/2019 9:14 am REASON FOR STUDY: hx legg calve perthes, c/o pain COMPARISON: Prior right hip films 10/22/2008, 05/27/2012, 05/04/2015, 11/29/2016 NUMBER OF VIEWS: Two views. TECHNIQUE: AP pelvis and additional frog-leg view of the right hip. LIMITATIONS: None. FINDINGS: MINERALIZATION: Normal. RIGHT HIP: No acute fracture or malalignment. No significant joint space narrowing or bony spurring. 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 Minimal right femoral head articular surface irregularity and sclerosis is prese nt, similar compared to studies dating back to 2011. No plain film evidence of advanced articular elizabeth rface collapse. LEFT HIP: No fracture or dislocation. No significant joint space narrowing or bony spurring. Mild c haracteristic flattening and remodeling of the left femoral head epiphysis from like cavity for these disease. No left femoral head sclerosis or articular surface irregularity. PUBIS AND ISCHIUM: No fracture. PELVIS: No fracture. SACRUM: No fracture or dislocation. No worrisome bone lesions. SOFT TISSUES: No findings. OTHER: No other significant finding. IMPRESSION: Changes of Utjn-Oijje-Qmogmbn disease Stable sclerosis right femoral head articular surface compared to previous studies. No acute fracture or malalignment. TECHNICAL DOCUMENTATION: JOB ID: [id number] [employer]- All Rights Reserved Reading location - IP/workstation name: [email or web address]
[2019-05-17 10:08] VITALS: BP 147/100
== END 2019-05-17 10:16 | disposition home or self-care (01) ==
LOC: ER 08:13
DX: M25.551 Pain in right hip (principal); Z87.39 Personal history of other diseases of the musculoskeletal system and connective tissue; F17.210 Nicotine dependence, cigarettes, uncomplicated; I10 Essential (primary) hypertension; J44.9 Chronic obstructive pulmonary disease, unspecified
CPT/HCPCS: 99283

== ENCOUNTER 2020-03-10 16:54 | Emergency (ER) | payer MEDICAID ==
--- NOTE | 2020-03-10 17:54 | ER Document Report ---
ED Respiratory Problem - General Chief Complaint: Cough Stated Complaint: COUGH Time Seen by Provider: 03/10/20 17:18 Primary Care Provider: NIK COBURN MD [Primary Care Provider] - Follow up in 3-5 days Mode of Arrival: Ambulatory Information source: Patient Notes: 44-year-old male presented to ED for complaint of cough times a month. He states he has a dry cough and he does smoke a pack a day. He states he has had diarrhea off and on as well as vomiting off and on for months but has not had any in the last couple weeks. He states he has had multiple by a.m. BMs in the morning but has not had any since then. He is alert and oriented respirations regular nonlabored speaking in full sentences. He is in no distress at time of exam. When I did ask him to take deep breaths he says sometimes it makes him lightheaded. The patient was evaluated during the global Covid 19 pandemic, and that diagnosis was suspected/considered upon their initial presentation. Their evaluation, treatment and testing was consistent with current guidelines for patients who present with complaints or symptoms that may be related to Covid 19. TRAVEL OUTSIDE OF THE [place] IN LAST 30 DAYS: No - HPI Patient complains to provider of: Cough Onset: Other - 1 to 2 months Duration: Intermittent episodes Initiating Event: Other - Smoker Quality of pain: Achy Severity: Mild Pain Level: 2 Context: Smoker Associated symptoms: Cough, Headache - Coughs real hard, PND, Runny nose, Sinus pain/pressure, Sore Throat - States is due to his cough Similar symptoms previously: Yes Recently seen / treated by doctor: No - Related Data Allergies/Adverse Reactions: No Known Allergies Allergy (Verified 03/10/20 17:08) Home Medications: psych meds. htn Past Medical History - General Information source: Patient - Social History Smoking Status: Current Every Day Smoker Cigarette use (# per day): Yes - Pack per day Chew tobacco use (# tins/day): No Smoking Education Provided: Yes - 4 minutes Frequency of alcohol use: Social Drug Abuse: None Family History: Arthritis, CAD, COPD, CVA, DM, Hyperlipidemia, Hypertension Patient has suicidal ideation: No Patient has homicidal ideation: No - Past Medical History Cardiac Medical History: Reports: Hx Hypertension Pulmonary Medical History: Reports: Hx COPD EENT Medical History: Reports: None Neurological Medical History: Reports: None Endocrine Medical History: Reports: None Renal/ Medical History: Reports: None Malignancy Medical History: Reports None GI Medical History: Reports: Hx Gastroesophageal Reflux Disease, Hx Ulcer Musculoskeletal Medical History: Reports Hx Musculoskeletal Deformity, Reports Hx Musculoskeletal Trauma Skin Medical History: Reports None Traumatic Medical History: Reports: Hx Fractures - radius Past Surgical History: Reports: Hx Orthopedic Surgery - Immunizations Immunizations up to date: Yes Hx Diphtheria, Pertussis, Tetanus Vaccination: Yes - UTD Review of Systems - Review of Systems Constitutional: Recent illness EENT: Nose discharge, Sinus discharge, Throat pain Cardiovascular: Lightheaded - Lightheaded when he coughs real hard Respiratory: Cough Gastrointestinal: Diarrhea - Intermittently for a month, Vomiting - Intermittently for months Genitourinary: No symptoms reported Skin: No symptoms reported Hematologic/Lymphatic: No symptoms reported Neurological/Psychological: No symptoms reported -: Yes All other systems reviewed and negative Physical Exam - Vital signs Vitals: Temp Pulse Resp BP Pulse Ox 99.2 F 94 20 138/96 H 96 03/10/20 16:57 03/10/20 16:57 03/10/20 16:57 03/10/20 16:57 03/10/20 16:57 Interpretation: Normal - General General appearance: Appears well, Alert - HEENT Head: Normocephalic, Atraumatic Eyes: Normal Pupils: PERRL Ears: Normal External canal: Normal Tympanic membrane: Normal Sinus: Normal Nasal: Purulent discharge, Swelling Mouth/Lips: Normal Mucous membranes: Normal Pharynx: Erythema, Post nasal drainage. No: Exudate, Peritonsillar abscess, Retropharyngeal abscess, Tonsillar hypertrophy, Uvular edema, Potential airway comprom. Neck: Normal - Respiratory Respiratory status: No respiratory distress Chest status: Nontender Breath sounds: Normal, Nonproductive cough Chest palpation: Normal - Cardiovascular Rhythm: Regular Heart sounds: Normal auscultation Murmur: No - Abdominal Inspection: Normal Distension: No distension Bowel sounds: Normal Tenderness: Nontender Organomegaly: No organomegaly - Back Back: Normal, Nontender - Extremities General upper extremity: Normal inspection, Nontender, Normal color, Normal ROM, Normal temperature General lower extremity: Normal inspection, Nontender, Normal color, Normal ROM, Normal temperature, Normal weight bearing. No: Aren's sign - Neurological Neuro grossly intact: Yes Cognition: Normal Orientation: AAOx4 Leobardo Coma Scale Eye Opening: Spontaneous [place] Coma Scale Verbal: Oriented Leobardo Coma Scale Motor: Obeys Commands Leobardo Coma Scale Total: 15 Speech: Normal Motor strength normal: LUE, RUE, LLE, RLE Sensory: Normal - Psychological Associated symptoms: Normal affect, Normal mood - Skin Skin Temperature: Warm Skin Moisture: Dry Skin Color: Normal Course - Re-evaluation Re-evalutation: 03/10/20 19:28 Labs and x-ray shows no acute process. Flu and strep were negative. Patient does have a history of COPD and smokes a pack a day. He is not wheezing at this time. He was tested for the covid 19 virus at this time and he will be [facility] home and instructed to please follow-up with his primary care doctor on Friday. He was also instructed to please return to the ED yearly for any increase in symptoms. Patient verbalized understanding and agreeable treatment plan. - Vital Signs Vital signs: Temp Pulse Resp BP Pulse Ox 98.9 F 89 18 136/78 H 98 03/10/20 19:37 03/10/20 19:37 03/10/20 19:37 03/10/20 19:37 03/10/20 19:37 - Diagnostic Test Radiology reviewed: Image reviewed, Reports reviewed Discharge - Discharge Clinical Impression: Viral respiratory illness, Viral sore throat, covid 19 testing Condition: Stable Disposition: HOME, SELF-CARE Additional Instructions: UPPER RESPIRATORY ILLNESS: You have a viral infection of the respiratory passages -- a "cold." This common infection causes nasal congestion, drainage, and often sore throat and cough. It is highly contagious. The disease usually lasts about 10 to 14 days. There is no "cure" for the viral infection -- it must run its course. If there is a complication, such as bacterial infection in the nose, sinuses, middle ear, or bronchial tubes, antibiotics may be required. The antibiotics won't affect the virus. Drink plenty of fluids. A humidifier may help. An expectorant medication or decongestant may make you more comfortable. Use acetaminophen or ibuprofen for fever or aches. See the doctor if fever persists over two days, if there is any significant worsening of your symptoms, or if you simply fail to improve as expected. SORE THROAT: Sore throats may be caused by viruses, bacteria, or fungi. Most are due to a virus, and must get better on their own. Bacterial sore throats, particularly those due to "strep," need treatment with antibiotics. If an antibiotic is prescribed, be sure to take the medication for a full 10 days. Failure to take the antibiotic can result in complications such as rheumatic fever. Sometimes, an injection of antibiotics is given instead of pills or liquid. This single "shot" is equal in effectiveness to the oral medication. To relieve symptoms, take acetaminophen for pain. Sip clear liquids frequently, or eat popsicles or ice chips. Anesthetic sprays or lozenges may help. Make sure the air in the room is not too dry. Avoid using decongestants or antihistamines. Call the doctor if there is no improvement in two days, or if you have difficulty breathing, increasing throat pain, high fever, rash, or frequent vomiting. You have been recommended treatment with Flonase which is [id number] 1 spray each nostril twice a day. You could also use salt soda solution gargles. These will help to remove the drainage from the back your throat. Chloraseptic spray was [id number] that will also help with your sore throat. Salt and soda solution gargle 1 quart of water 1 tablespoon of salt 1 teaspoon of baking soda Mixed 3 ingredients together and boil for 1 minute Placed in a covered quart jar Use 1/2 ounce of cold solution to gargle 3 times a day USE OF ACETAMINOPHEN (Tylenol): Acetaminophen may be taken for pain relief or fever control. It's much safer than aspirin, offering a wider range of "safe" dosages. It is safe during . Some brand names are Tylenol, Panadol, Datril, Anacin 3, Tempra, and Liquiprin. Acetaminophen can be repeated every four hours. The following are maximum recommended dosages: >89 pounds or adults 650 mg to 900 mg Acetaminophen can be repeated every four hours. Maximum dose not to exceed 4000 mg a day. SMOKING: If you smoke, you should stop smoking. The tar and chemicals in cigarette smoke are harmful. Smoking has been shown to cause: emphysema chronic bronchitis lung cancer mouth and throat cancer stomach and pancreas cancer premature aging defects In addition, smoking increases ear and lung infections in children of smokers. Patient was provided with discharge information including: As a person under investigation for Covid 19, the [place] department of Health and Human Services, division of public health advises you to adhere to the following guidance until your test results are reported to you. If your test result is positive, you will receive additional information from your provider and your local health department at that time. Remain at home until you are cleared by the health provider or public health authorities. Keep a log of visitors to your home, notify any visitors to your home of your isolation status. If you plan to move to a new address or leave the county, notify the local health department in your County. Call your doctor or seek care if you have an urgent medical need. Before seeking medical care, call ahead to get instructions from the provider before arriving at the medical office clinic or hospital. Notify them that you are being tested for the virus that causes Covid 19 so that arrangements can be made, as necessary, to prevent transmission to others in the healthcare setting. Next, notify the local health department in your county. If a medical emergency arises and you need to call 911, inform the first responders that you are being tested for the virus that causes Covid 19. Next, notify the local health department in your county. FOLLOW-UP CARE: If you have been referred to a physician for follow-up care, call the physicians office for an appointment as you were instructed or within the next two days. If you experience worsening or a significant change in your symptoms, notify the physician immediately or return to the Emergency Department at any time for re-evaluation. Forms: Smoking Cessation Education Referrals: NIK COBURN MD [Primary Care Provider] - Follow up in 3-5 days
--- NOTE | 2020-03-10 18:37 | RADIOLOGY REPORT (SQ) ---
EXAM DESCRIPTION: CHEST SINGLE VIEW IMAGES COMPLETED DATE/TIME: 03/10/2020 6:16 pm REASON FOR STUDY: Cough congestion COMPARISON: 09/14/2016 EXAM PARAMETERS: NUMBER OF VIEWS: One view. TECHNIQUE: Single frontal radiographic view of the chest acquired. RADIATION DOSE: NA LIMITATIONS: None. FINDINGS: LUNGS AND PLEURA: No opacities, masses or pneumothorax. No pleural effusion. MEDIASTINUM AND HILAR STRUCTURES: No masses. Contour normal. HEART AND VASCULAR STRUCTURES: Heart normal in size. Normal vasculature. BONES: No acute findings. HARDWARE: None in the chest. OTHER: No other significant finding. IMPRESSION: NO ACUTE RADIOGRAPHIC FINDING IN THE CHEST. TECHNICAL DOCUMENTATION: JOB ID: [id number] 2010 [employer]- All Rights Reserved Reading location - IP/workstation name: [email or web address]
[2020-03-10 18:47] LABS: A TYPE INFLUENZA AG NEGATIVE (NEGATIVE); B INFLUENZA AG NEGATIVE (NEGATIVE)
[2020-03-10 19:38] VITALS: BP 136/78
== END 2020-03-10 19:42 | disposition home or self-care (01) ==
LOC: ER 16:54
DX: J02.9 Acute pharyngitis, unspecified (principal); R05 Cough; R51 Headache; R19.7 Diarrhea, unspecified; F17.210 Nicotine dependence, cigarettes, uncomplicated; I10 Essential (primary) hypertension; J44.9 Chronic obstructive pulmonary disease, unspecified
CPT/HCPCS: 71045; 87070; 87804; 87880; 99283; 99406

== ENCOUNTER 2020-10-17 10:25 | Emergency (ER) | payer MEDICAID ==
--- NOTE | 2020-10-17 10:43 | ER Document Report ---
ED Medical Screen (RME) - General Chief Complaint: Cough Stated Complaint: COUGH Time Seen by Provider: 10/17/20 10:36 Primary Care Provider: NIK COBURN MD [Primary Care Provider] - Follow up as needed TRAVEL OUTSIDE OF THE [place] IN LAST 30 DAYS: No - HPI Notes: 10/17/20 10:41 44-year-old male with a history of COPD, hypertension, hyperlipidemia who smokes roughly a pack a day for over the last 20 years presents with cough, bilateral chest pain without radiation, nausea fatigue headaches and sore muscles that has occurred intermittently since 02 September but became progressively worse on 09 September, he states what brought on to the emergency room today was his chest pain and his cough. Denies having a prior history of cardiac issues. Reports he did get his flu shot and pneumonia shot this year. Patient denies any positive Covid test. States he has been using his rescue inhaler more. Patient states chest pain is bilateral, no radiation of pain. Denies any vomiting, abdominal pain, shortness of breath I have greeted and performed a rapid initial assessment of this patient. A comprehensive ED assessment and evaluation of the patient, analysis of test results and completion of the medical decision making process will be conducted by additional ED providers. PHYSICAL EXAMINATION: GENERAL: Well-appearing, well-nourished and in no acute distress. NECK: Normal range of motion CV: s1, s2 regular LUNGS: Diminished breath sounds in bilateral upper lobes Musculoskeletal: Normal range of motion NEUROLOGICAL: Normal speech, normal gait. SKIN: Warm, Dry, normal turgor, no rashes or lesions noted. - Related Data Allergies/Adverse Reactions: No Known Allergies Allergy (Verified 03/10/20 17:08) Past Medical History - Social History Frequency of alcohol use: Occasional Drug Abuse: None - Past Medical History Cardiac Medical History: Reports: Hx Hypertension Pulmonary Medical History: Reports: Hx COPD GI Medical History: Reports: Hx Gastroesophageal Reflux Disease, Hx Ulcer Musculoskeltal Medical History: Reports Hx Musculoskeletal Deformity, Reports Hx Musculoskeletal Trauma Traumatic Medical History: Reports: Hx Fractures - radius Past Surgical History: Reports: Hx Orthopedic Surgery - Immunizations Immunizations up to date: Yes Hx Diphtheria, Pertussis, Tetanus Vaccination: Yes - UTD Physical Exam - Vital signs Vitals: Temp Pulse Resp BP Pulse Ox 98.4 F 112 H 18 134/97 H 100 10/17/20 10:30 10/17/20 10:30 10/17/20 10:30 10/17/20 10:30 10/17/20 10:30 Course - Vital Signs Vital signs: Temp Pulse Resp BP Pulse Ox 98.4 F 112 H 18 134/97 H 100 10/17/20 10:30 10/17/20 10:30 10/17/20 10:30 10/17/20 10:30 10/17/20 10:30 Doctor's Discharge - Discharge Referrals: NIK COBURN MD [Primary Care Provider] - Follow up as needed
[2020-10-17 11:16] LABS: ABSOLUTE MONOCYTES (AUTO) 0.8 10^3/uL (0.1-1.4); SEGMENTED NEUTROPHILS % (AUTO) 78.5 % (42-78); TOTAL CELLS COUNTED % (AUTO) 100 %
[2020-10-17 11:26] LABS: ABSOLUTE EOSINOPHILS # (AUTO) 0.2 10^3/uL (0.0-0.6); ABSOLUTE LYMPHOCYTES (AUTO) 1.5 10^3/uL (0.5-4.7); ABSOLUTE NEUT (AUTO) 9.3 10^3/uL (1.7-8.2); BASOPHILS % (AUTO) 0.4 % (0-2); EOSINOPHILS % (AUTO) 1.4 % (0-6); HEMATOCRIT 41.6 % (37.9-51.0); HEMOGLOBIN 15.1 g/dL (13.5-17.0); LYMPHOCYTES % (AUTO) 12.9 % (13-45); MEAN CORPUSCULAR HEMOGLOBIN 34.5 pg (27.0-33.4); MEAN CORPUSCULAR HGB CONC 36.2 g/dL (32.0-36.0); MEAN CORPUSCULAR VOLUME 95 fl (80-97); MONOCYTES % (AUTO) 6.8 % (3-13); PLATELET COUNT 311 10^3/uL (150-450); RED BLOOD COUNT 4.36 10^6/uL (4.35-5.55); RED CELL DISTRIBUTION WIDTH 13.3 % (11.5-14.0); WHITE BLOOD COUNT 11.8 10^3/uL (4.0-10.5)
[2020-10-17 11:32] LABS: A TYPE INFLUENZA AG NEGATIVE (NEGATIVE); B INFLUENZA AG NEGATIVE (NEGATIVE)
[2020-10-17 11:33] LABS: ALBUMIN 4.6 g/dL (3.5-5.0); ALKALINE PHOSPHATASE 166 U/L (38-126); ANION GAP 10 (5-19); ASPARTATE AMINO TRANSFERASE 44 U/L (17-59); BILIRUBIN,DIRECT 0.2 mg/dL (0.0-0.4); BILIRUBIN,TOTAL 0.6 mg/dL (0.2-1.3); BLOOD UREA NITROGEN 7 mg/dL (7-20); CALCIUM 10.1 mg/dL (8.4-10.2); CARBON DIOXIDE 29 mmol/L (22-30); CHLORIDE 92 mmol/L (98-107); CREATINE KINASE 74 U/L (55-170); GLUCOSE 110 mg/dL (75-110); POTASSIUM 3.6 mmol/L (3.6-5.0); TOTAL PROTEIN 7.7 g/dL (6.3-8.2)
[2020-10-17 11:45] LABS: CREATINE KINASE MB 0.66 ng/mL (<4.55)
[2020-10-17 11:46] LABS: TROPONIN I < 0.012 ng/mL
[2020-10-17] MEDS ORDERED: BENZONATATE 100 MG CAPSULE PO ONE (13:16)
[2020-10-17] MEDS ORDERED: IPRATROPIUM/ALBUTEROL 0.5-2.5 MG/3 ML AMPUL NEB ONE (13:17)
[2020-10-17] MEDS ORDERED: GUAIFENESIN/D-METHORPHAN (200-20 MG) SYRUP 10 ML PO ONE (13:17)
--- NOTE | 2020-10-17 14:04 | ER Document Report ---
Entered by CECY MARCUS SCRIBE 10/17/20 1307 Acting as scribe for:EPI RODRIGUZE MD ED General - General Chief Complaint: Cough Stated Complaint: COUGH Time Seen by Provider: 10/17/20 10:36 Primary Care Provider: NIK COBURN MD [Primary Care Provider] - Follow up as needed Mode of Arrival: Ambulatory Information source: Patient Notes: This 44 year old male patient with a history of hypertension, hyperlipidemia, and COPD presents to the ED today with complaints of cough that started x1 month ago. Patient states that the cough "settled down for awhile and started back up again" x1 week ago. He reports associated bilateral chest pain with cough. When asked if he notices that he wheezes at night, the patient admits that he does and that he has been using his rescue inhaler more often with mild relief. He also mentions poor appetite due to nausea, stating that he has been only eating x1 meal a day. Denies known COVID exposure. TRAVEL OUTSIDE OF THE [place] IN LAST 30 DAYS: No - Related Data Allergies/Adverse Reactions: No Known Allergies Allergy (Verified 10/17/20 13:39) Past Medical History - General Information source: Patient, [facility] Records - Social History Smoking Status: Current Every Day Smoker Cigarette use (# per day): Yes - 0.5 ppd Chew tobacco use (# tins/day): No Smoking Education Provided: No Frequency of alcohol use: Occasional Drug Abuse: None Family History: Reviewed & Not Pertinent, Arthritis, CAD, COPD, CVA, DM, Hyperlipidemia, Hypertension - Past Medical History Cardiac Medical History: Reports: Hx Hypertension Pulmonary Medical History: Reports: Hx COPD GI Medical History: Reports: Hx Gastroesophageal Reflux Disease, Hx Ulcer Musculoskeletal Medical History: Reports Hx Musculoskeletal Deformity, Reports Hx Musculoskeletal Trauma Traumatic Medical History: Reports: Hx Fractures - radius Past Surgical History: Reports: Hx Orthopedic Surgery - Left shoulder 03/2019 - Immunizations Immunizations up to date: Yes Hx Diphtheria, Pertussis, Tetanus Vaccination: Yes - UTD Review of Systems - Review of Systems Constitutional: No symptoms reported EENT: No symptoms reported Cardiovascular: See HPI, Chest pain Respiratory: See HPI, Cough Gastrointestinal: See HPI, Nausea, Poor appetite Genitourinary: No symptoms reported Male Genitourinary: No symptoms reported Musculoskeletal: No symptoms reported Skin: No symptoms reported Hematologic/Lymphatic: No symptoms reported Neurological/Psychological: No symptoms reported -: Yes All other systems reviewed and negative Physical Exam - Vital signs Vitals: Temp Pulse Resp BP Pulse Ox 98.4 F 112 H 18 134/97 H 100 10/17/20 10:30 10/17/20 10:30 10/17/20 10:30 10/17/20 10:30 10/17/20 10:30 - General General appearance: Alert In distress: None - HEENT Head: Normocephalic, Atraumatic Eyes: Normal Pupils: PERRL - Respiratory Respiratory status: No respiratory distress Chest status: Tender - Anterior chest wall tenderness to palpation Breath sounds: Wheezing - Minimal Chest palpation: Normal - Cardiovascular Rhythm: Regular Heart sounds: Normal auscultation Murmur: No Friction rub: No Gallop: None auscultated - Abdominal Inspection: Obese Distension: No distension Bowel sounds: Normal Tenderness: Nontender - Abdomen soft Organomegaly: No organomegaly - Back Back: Normal, Nontender - Extremities General upper extremity: Normal inspection General lower extremity: Normal inspection. No: Edema - Neurological Neuro grossly intact: Yes Orientation: AAOx4 [place] Coma Scale Eye Opening: Spontaneous Leobardo Coma Scale Verbal: Oriented [place] Coma Scale Motor: Obeys Commands [place] Coma Scale Total: 15 - Psychological Associated symptoms: Normal affect, Normal mood - Skin Skin Temperature: Warm Skin Moisture: Dry Skin Color: Normal Course - Re-evaluation Re-evalutation: 10/17/20 14:52 Patient reports that his coughing is better after the Robitussin-DM, Tessalon Perles, and breathing treatment. - Vital Signs Vital signs: Temp Pulse Resp BP Pulse Ox 98.4 F 112 H 18 134/97 H 97 10/17/20 10:30 10/17/20 10:30 10/17/20 10:30 10/17/20 10:30 10/17/20 13:15 10/17/20 15:01 The patient was evaluated during the global COVID-19 pandemic and that diagnosis was suspected/considered upon their initial presentation. Their evaluation, treatment and testing was consistent with current guidelines for patients who present with complaints or symptoms that may be related to COVID-19. Patient states that his breathing feels much better after the Tessalon Perles, Robitussin-DM, and breathing treatment. - Laboratory Result Diagrams: 10/17/20 10:58 10/17/20 10:58 Laboratory results interpreted by me: 10/17/20 10/17/20 10:58 10:58 WBC 11.8 H MCH 34.5 H MCHC 36.2 H Lymph % (Auto) 12.9 L Absolute Neuts (auto) 9.3 H Seg Neutrophils % 78.5 H Sodium 131.3 L Chloride 92 L Alkaline Phosphatase 166 H - Diagnostic Test Radiology reviewed: Image reviewed - Chest x-ray does not show acute cardiopulmonary changes. - EKG Interpretation by Me EKG shows normal: Sinus rhythm, [place], Intervals, QRS Complexes, ST-T Waves Rate: Tachycardia - 104 When compared to previous EKG there are: No significant change Discharge - Discharge Clinical Impression: Cough, Bronchitis, Anterior chest wall pain Condition: Stable Disposition: HOME, SELF-CARE Additional Instructions: Bronchitis You have acute bronchitis. This disease is an infection or inflammation of the air passageways in your lungs. Symptoms usually include cough, low grade fever, shortness of breath, and wheezing. The cough usually persists for a couple of weeks. Most cases of bronchitis get better without antibiotics. We prescribe antibiotics when we believe bacteria are damaging your airways, or if there's high risk the bronchitis will worsen into pneumonia. Increase your fluid intake. A cool mist humidifier may make your lungs more comfortable. An expectorant (cough medicine that loosens phlegm) can help. If you smoke, STOP!!! Recovery from bronchitis can be somewhat slow, but you should see improvement within a day or two. Repeated episodes of bronchitis may result in lung damage -- for example, chronic bronchitis, recurrent pneumonias, or emphysema. Call the doctor if you develop increasing fever, shortness of breath, chest pain, bloody sputum, or otherwise worsen. If you have not improved at all after several days, contact the physician. Chest Wall Pain Your chest pain has been diagnosed as coming from the chest wall. This is often caused by straining the muscles or joints in the chest during physical activity, direct trauma, coughing, or vigorous vomiting. Persons with arthritis are especially prone to this type of pain, due to inflammation of the cartilage joints near the breast bone. Occasionally, no cause can be found. Rest from strenuous physical activity. This kind of chest pain is usually made worse by movement of the chest. Depending on the symptoms, we may p rescribe medicine for pain, muscle relaxation, and antiinflammatory effects. If the pain is new, and seems to be due to muscle strain, cold packs can help. Otherwise, apply gentle warmth to the painful area for 15 minutes every hour or two. You should contact the doctor immediately if things change. Further evaluation is needed if you develop a fever or cough, if the nature of the pain changes, or if you become short of breath. Start taking the prednisone as prescribed tomorrow, you were given today's dose here in the emergency room. Take the Tessalon Perles as prescribed to help suppress your cough. Take Robitussin-DM for additional control of your cough. Drink plenty of fluids and get plenty of rest. Use your albuterol inhaler as needed for wheezing. Take Tylenol and ibuprofen for your chest wall pain. Try to stop smoking. Follow-up with your primary care provider if not improving. RETURN TO THE EMERGENCY ROOM IF ANY NEW OR WORSENING SYMPTOMS. Prescriptions: Prednisone [Deltasone 10 mg Tablet] 10 mg PO ASDIR PRN #21 tablet PRN Reason: Benzonatate [Tessalon Perles 100 mg Capsule] 100 mg PO ASDIR PRN #30 capsule PRN Reason: Referrals: NIK COBURN MD [Primary Care Provider] - Follow up as needed I personally performed the services described in the documentation, reviewed and edited the documentation which was dictated to the scribe in my presence, and it accurately records my words and actions.
[2020-10-17] MEDS ORDERED: PREDNISONE 20 MG TABLET PO ONE (14:48)
--- NOTE | 2020-10-17 15:13 | EKG REPORT ---
SEVERITY:- BORDERLINE ECG - SINUS TACHYCARDIA : Confirmed by: Henna Butt MD 17-Oct-2020 15:12:53
[2020-10-17 16:14] VITALS: BP 133/93
--- NOTE | 2020-10-17 17:31 | RADIOLOGY REPORT (SQ) ---
EXAM DESCRIPTION: CHEST SINGLE VIEW IMAGES COMPLETED DATE/TIME: 10/17/2020 1:43 pm REASON FOR STUDY: Cough, COPD COMPARISON: 03/10/2020. EXAM PARAMETERS: NUMBER OF VIEWS: One view. TECHNIQUE: Single frontal radiographic view of the chest acquired. RADIATION DOSE: NA LIMITATIONS: None. FINDINGS: LUNGS AND PLEURA: No opacities, masses or pneumothorax. No pleural effusion. MEDIASTINUM AND HILAR STRUCTURES: No masses. Contour normal. HEART AND VASCULAR STRUCTURES: Heart normal in size. Normal vasculature. BONES: No acute findings. HARDWARE: None in the chest. OTHER: No other significant finding. IMPRESSION: NO ACUTE RADIOGRAPHIC FINDING IN THE CHEST. TECHNICAL DOCUMENTATION: JOB ID: [id number] 2010 [employer]- All Rights Reserved Reading location - IP/workstation name: [email or web address]
== END 2020-10-17 16:14 | disposition home or self-care (01) ==
LOC: ER 10:25
DX: J44.9 Chronic obstructive pulmonary disease, unspecified (principal); R05 Cough; R07.89 Other chest pain; R11.0 Nausea; R63.0 Anorexia; F17.210 Nicotine dependence, cigarettes, uncomplicated; I10 Essential (primary) hypertension; Z20.828 Contact with and (suspected) exposure to other viral communicable diseases
CPT/HCPCS: 93005; 94640; 99285; 36415; 82553; 82550; 85025; 87635; 80053; 84484; 87804; 71045; 93010; J3490 ×2; J7512; C9803

== ENCOUNTER 2020-10-23 11:55 | Emergency (ER) | payer MEDICAID ==
[2020-10-23 12:30] VITALS: BP 101/63
--- NOTE | 2020-10-23 12:31 | ER Document Report ---
ED Extremity Problem, Lower - General Chief Complaint: Fall Injury Stated Complaint: FALL/LEFT ANKLE PAIN,SWELLING Time Seen by Provider: 10/23/20 12:23 Primary Care Provider: DIEGO WELCH DO [ACTIVE STAFF] - Follow up as needed Mode of Arrival: Wheelchair Information source: Patient, Relative Notes: Patient is a 44-year-old male comes emergency room [place] by his with complaint of left ankle and foot pain. According to patient about a week ago he had a soft spot in his kitchen and fell through it. He hurt his ankle then but was able to ambulate without much of a problem. He went over to his [id number]'s house today and was walking through her house and had a weak spot in the floor and went through it as well. This time when he went through he felt a crack in his ankle. states that when she is bringing him here and he was coming out of the house she also heard a pop and a crack in his lower ankle. Patient has swelling to the area right now and is unable to ambulate on it. Patient has past medical history pertinent for hypertension which he takes blood pressure medication for as well as schizoaffective disorder. Patient does admit to smoking. TRAVEL OUTSIDE OF THE [place] IN LAST 30 DAYS: No - HPI Patient complains to provider of: Injury, Pain, Swelling Location: Ankle, Foot Occurred: This morning Where: Neighbor's Onset/Duration: Sudden, Worse Quality of pain: Sharp, Throbbing Severity: Moderate Pain Level: 3 Context: Wearing shoes Recent injury: Yes Associated symptoms: Unable to bear weight Exacerbated by: Movement, Walking Relieved by: Elevation, Rest - Related Data Allergies/Adverse Reactions: No Known Allergies Allergy (Verified 10/23/20 12:22) Past Medical History - General Information source: Patient - Social History Smoking Status: Current Every Day Smoker Cigarette use (# per day): Yes - Half pack Chew tobacco use (# tins/day): No Smoking Education Provided: Yes Frequency of alcohol use: None Drug Abuse: None Lives with: Family Family History: Reviewed & Not Pertinent, Arthritis, CAD, COPD, CVA, DM, Hyperlipidemia, Hypertension Patient has homicidal ideation: No - Past Medical History Cardiac Medical History: Reports: Hx Hypertension Pulmonary Medical History: Reports: Hx COPD GI Medical History: Reports: Hx Gastroesophageal Reflux Disease, Hx Ulcer Musculoskeletal Medical History: Reports Hx Musculoskeletal Deformity, Reports Hx Musculoskeletal Trauma Traumatic Medical History: Reports: Hx Fractures - radius Past Surgical History: Reports: Hx Orthopedic Surgery - Left shoulder 03/2019 - Immunizations Immunizations up to date: Yes Hx Diphtheria, Pertussis, Tetanus Vaccination: Yes - UTD Review of Systems - Review of Systems Constitutional: No symptoms reported EENT: No symptoms reported Cardiovascular: No symptoms reported Respiratory: No symptoms reported Gastrointestinal: No symptoms reported Genitourinary: No symptoms reported Male Genitourinary: No symptoms reported Musculoskeletal: Joint pain, Joint swelling Skin: No symptoms reported Hematologic/Lymphatic: No symptoms reported Neurological/Psychological: No symptoms reported -: Yes All other systems reviewed and negative Physical Exam - Vital signs Vitals: Temp Pulse Resp BP Pulse Ox 98.7 F 105 H 19 97/65 L 95 10/23/20 12:04 10/23/20 12:04 10/23/20 12:04 10/23/20 12:04 10/23/20 12:04 Interpretation: Hypotensive, Tachycardic - Notes Notes: PHYSICAL EXAMINATION: GENERAL: Well-appearing, well-nourished and in no acute distress. HEAD: Atraumatic, normocephalic. NECK: Normal range of motion, supple without lymphadenopathy LUNGS: Breath sounds clear to auscultation bilaterally and equal. No wheezes rales or rhonchi. HEART: Tachycardic rate and rhythm without murmurs Musculoskeletal: Examination patient's area concern is his left lower extremity primarily the ankle and foot. Examination of this area shows moderate amount of edema circumferentially around the ankle with most of the swelling being anterior. Patient displays good dorsalis pedal pulse good cap refill in nailbeds of the toes. Also displays moderate moderate tenderness along the fifth metatarsal to palpation with no ecchymosis noted. Patient has limited flexion extension of the left ankle secondary to pain and swelling. No crepitus is felt with passive range of motion but passive range of motion is limited again secondary to pain and discomfort. NEUROLOGICAL: . Normal speech, normal gait. Normal sensory, motor exams PSYCH: Normal mood, normal affect. SKIN: Warm, Dry, normal turgor, no rashes or lesions noted. Course - Vital Signs Vital signs: Temp Pulse Resp BP Pulse Ox 98.7 F 104 H 19 101/63 95 10/23/20 12:04 10/23/20 12:29 10/23/20 12:04 10/23/20 12:29 10/23/20 12:29 Procedures - Immobilization Left Anterior Ankle Pre-Proc Neuro Vasc Exam: Normal Immobilizer type: Short Leg Posterior Performed by: PCT Post-Proc Neuro Vasc Exam: Normal Alignment checked and good: Yes Discharge - Discharge Clinical Impression: Left ankle sprain Qualifiers: Encounter type: initial encounter Involved ligament of ankle: unspecified ligament Qualified Code(s): S93.402A - Sprain of unspecified ligament of left ankle, initial encounter Condition: Stable Disposition: HOME, SELF-CARE Instructions: Ice Packs ([facility]), Splint Precautions ([facility]), Sprained Ankle ([facility]) Additional Instructions: As we discussed x-rays did not show any fractures however I cannot tell you that you did not injure ligaments or tendons at this point. I highly recommended that you be nonweightbearing for the next 3 days after 3 days attempt to bear weight if it is still painful or you still feel like there is some kind of cracking going on inside you will need to see an orthopedic doctor. In the meantime you can ice down the ankle through the splint that you have on by placing a garbage bag over top of the ankle and foot and putting an ice pack underneath and above for 45 minutes to an hour. Do this 2-3 times a day. You can use Tylenol and/or Motrin for aches and pain. You do want to get up and ambulate some in the house go on to be totally bedridden because this increases your chances for blood clots. I am giving you the name of the orthopedist salesperson [employer] today you can contact her office to see if they can accommodate you. 6 have any concerns or problems you can return to ER for reevaluation. Forms: Smoking Cessation Education Referrals: DIEGO WELCH, [ACTIVE STAFF] - Follow up as needed
--- NOTE | 2020-10-23 13:21 | RADIOLOGY REPORT (SQ) ---
EXAM DESCRIPTION: ANKLE LEFT COMPLETE IMAGES COMPLETED DATE/TIME: 10/23/2020 1:11 pm REASON FOR STUDY: Pain and swelling COMPARISON: None. NUMBER OF VIEWS: Three views. TECHNIQUE: AP, lateral, and oblique radiographic images acquired of the left ankle. LIMITATIONS: None. FINDINGS: MINERALIZATION: Normal. BONES: Small well corticated fragment off the distal fibula which may related to old injury. No acut e fracture dislocation. JOINTS: No effusions. SOFT TISSUES: Soft tissue swelling laterally. OTHER: No other significant finding. IMPRESSION: Soft tissue swelling laterally. No acute fracture or dislocation. TECHNICAL DOCUMENTATION: JOB ID: [id number] 2010 [employer]- All Rights Reserved Reading location - IP/workstation name: [email or web address]
--- NOTE | 2020-10-23 13:22 | RADIOLOGY REPORT (SQ) ---
EXAM DESCRIPTION: FOOT LEFT 2 VIEWS IMAGES COMPLETED DATE/TIME: 10/23/2020 1:12 pm REASON FOR STUDY: Pain COMPARISON: 01/24/2017 NUMBER OF VIEWS: Three views. TECHNIQUE: AP, lateral and oblique radiographic images acquired of the left foot. LIMITATIONS: None. FINDINGS: MINERALIZATION: Normal. BONES: No acute fracture or dislocation. No worrisome bone lesions. JOINTS: No effusions. SOFT TISSUES: No soft tissue swelling. No foreign body. OTHER: No other significant finding. IMPRESSION: NEGATIVE STUDY OF THE LEFT FOOT. NO RADIOGRAPHIC EVIDENCE OF ACUTE INJURY. TECHNICAL DOCUMENTATION: JOB ID: [id number] 2010 [employer]- All Rights Reserved Reading location - IP/workstation name: [email or web address]
== END 2020-10-23 14:30 | disposition home or self-care (01) ==
LOC: ER 11:55
DX: S93.402A Sprain of unspecified ligament of left ankle, initial encounter (principal); M25.472 Effusion, left ankle; W13.3XXA Fall through floor, initial encounter; Y92.000 Kitchen of unspecified non-institutional (private) residence as the place of occurrence of the external cause; F17.210 Nicotine dependence, cigarettes, uncomplicated
CPT/HCPCS: 99284

== ENCOUNTER 2020-11-17 06:06 | Emergency (ER) | payer MEDICAID ==
[2020-11-17] MEDS ORDERED: KETOROLAC TROMETHAMINE INJ/PF 30 MG/1 ML SDV IV ONE (06:35)
--- NOTE | 2020-11-17 06:42 | ER Document Report ---
ED General - General Chief Complaint: Chest Wall Pain Stated Complaint: CHEST WALL PAIN Time Seen by Provider: 11/17/20 06:10 TRAVEL OUTSIDE OF THE [place] IN LAST 30 DAYS: No - HPI Notes: Chief complaint: Left upper back pain and flulike illness History of present illness: 44-year-old male with 3-week history flulike illness now presenting with productive cough and pain left infrascapular area. Denies trauma. He has felt chilled but has not taken his temperature. Producing green sputum. No hemoptysis. 1 pack/day cigarette smoker. History of COPD. Previously seen 2 weeks ago by his primary care provider and reports he had a negative Covid test at that time. He says he was given a flu shot and a Pneumovax at that visit. Symptoms have gotten worse. Patient has a history of a "light heart attack" in the past. Other remarkable prior medical history includes hypertension, hyperlipidemia, COPD, bipolar disorder and chronic pain syndrome related to his left hip. 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 EMS reports a negative rapid Covid screen during transport today. They gave him 1 dose of fentanyl IV because of his pain. Patient denies any known history of thromboembolic disease. Not diabetic. Patient denies any skin rashes. States that he had varicella in childhood. - Related Data Allergies/Adverse Reactions: No Known Allergies Allergy (Verified 10/23/20 12:22) Past Medical History - General Information source: Patient, [facility] Records - Social History Smoking Status: Current Every Day Smoker Frequency of alcohol use: Social Drug Abuse: None Lives with: Family Family History: Reviewed & Not Pertinent, Arthritis, CAD, COPD, CVA, DM, Hyperlipidemia, Hypertension - Past Medical History Cardiac Medical History: Reports: Hx Heart Attack, Hx Hypertension Pulmonary Medical History: Reports: Hx COPD Endocrine Medical History: Denies: Hx Diabetes Mellitus Type 1, Hx Diabetes Mellitus Type 2 Renal/ Medical History: Reports: None GI Medical History: Reports: Hx Gastroesophageal Reflux Disease, Hx Ulcer Musculoskeletal Medical History: Reports Hx Musculoskeletal Deformity, Reports Hx Musculoskeletal Trauma Psychiatric Medical History: Reports: Hx Anxiety, Hx Attention Deficit Hyperactivity Disorder, Hx Bipolar Disorder, Hx Depression, Hx Post Traumatic Stress Disorder Traumatic Medical History: Reports: Hx Fractures - radius left Past Surgical History: Reports: Hx Orthopedic Surgery - Left shoulder 03/2019 - Immunizations Immunizations up to date: Yes Hx Diphtheria, Pertussis, Tetanus Vaccination: Yes - 2019 Review of Systems - Review of Systems Notes: Constitutional: As per HPI. HENT: Reports sore throat. Eyes: Negative for visual changes. Cardiovascular: As per HPI. Respiratory: Dyspnea on exertion. Gastrointestinal: Negative for abdominal pain, vomiting or diarrhea. Genitourinary: Negative for dysuria. Musculoskeletal: As per HPI. Skin: Negative for rash. Neurological: Negative for headaches, focal weakness or numbness. 10 point ROS negative except as marked above and in HPI. Physical Exam - Vital signs Vitals: Resp BP Pulse Ox 16 143/97 H 96 11/17/20 06:13 11/17/20 06:13 11/17/20 06:13 - Notes Notes: GENERAL: Middle-age male who appears generally weak and uncomfortable. SKIN: Good turgor no rashes. HEAD: Normocephalic atraumatic. EYES: PERRLA. EOMI. Conjunctivae and sclerae clear. EARS: CANALS AND TMS CLEAR. NOSE: CLEAR. MOUTH: Moist mucosa. Good dentition. No stridor or edema. No drooling. NECK: Supple. No masses or thyromegaly. No adenopathy. Carotids 2+ without bruits. No JVD. Throat: Mild hoarseness. Pharynx is injected without exudates. BACK: Complains of severe pain left infrascapular area with movement. This area is also tender to palpation.. CHEST: Respirations unlabored. Breath sounds clear and symmetrical. HEART: Regular rhythm. No murmur gallop or rub. ABDOMEN: Obese. Soft nontender without masses, organomegaly or rebound. Bowel sounds normally active. No bruits. GENITALIA: Deferred. EXTREMITIES: No edema. No calf tenderness. Cap refill less than 1.5 seconds. Dorsalis pedis and posterior tibial pulses 3+ and symmetrical. NEUROLOGICAL: GCS 15. Alert and oriented x3. Normal gait. Fluent speech. Cranial nerves II through XII intact. Sensorimotor and cerebellar normal. Normal tone. PSYCHIATRIC: Appropriate affect. Course - Vital Signs Vital signs: Temp Pulse Resp BP Pulse Ox 98 F 99 14 156/104 H 96 11/17/20 07:09 11/17/20 07:12 11/17/20 11:00 11/17/20 11:00 12/18/20 11:00 - Laboratory Results Result Diagrams: 11/17/20 06:24 11/17/20 06:24 Laboratory Results Interpreted: 11/17/20 11/17/20 06:24 06:24 RBC 3.85 L Hgb 13.2 L Hct 36.6 L MCH 34.3 H MCHC 36.1 H Sodium 124.9 L Chloride 91 L Alkaline Phosphatase 156 H Creatine Kinase 209 H Critical Laboratory Results Reviewed: Yes Attending or Supervising Physician who Reviewed Labs: YI RIVAS Radiology Results Critical Radiology Results Reviewed: Yes Attending or Supervising Physician who Reviewed Radiology: YI RIVAS EKG Interpretation by Me Additional EKG results interpreted by me: 11/17/20 06:43 Twelve-lead EKG reviewed by me contemporaneously: 0638 hrs. Indication for study: Left upper back pain Rhythm: Normal sinus Rate: 92 Intervals: Normal intervals QRS axis: +[address]/T wave changes: None Comparison with prior tracing: None Interpretation: Normal tracing Discharge - Discharge Clinical Impression: COPD exacerbation, Pleurisy Pneumonia Qualifiers: Pneumonia type: due to unspecified organism Laterality: bilateral Lung location: lower lobe of lung Qualified Code(s): J18.9 - Pneumonia, unspecified organism Condition: Stable Disposition: HOME, SELF-CARE Additional Instructions: Pleurisy Your chest pain has been diagnosed as pleuritis (pleurisy). This is an inflammation of the surface of the lung tissue. It can be caused by a virus or, occasionally, old scar tissue. It is painful but, for the most part, not a seri ous problem. This pain is usually made worse by deep breathing, coughing, or sudden movements of the upper body or arms. The treatment is relief of symptoms. It includes rest, antiinflammatory medication, and pain medicine. Resolution of the pain is usually rapid once antiinflammatory medication is started. Warning signs of a more serious problem include: a fever, shortness of breath, pain that radiates to your jaw, shoulders or arms, or coughing up bloody sputum. If any of these symptoms occur, call the physician at once. Pneumonia Your examination indicates that you have pneumonia. This is an infection of the lung tissue, usually caused by bacteria or a virus. Symptoms include cough, fever, shaking chills, chest pain, shortness of breath, and coughing up bloody sputum. Treatment for bacterial pneumonia includes rest, antibiotics for 10 to 14 days, increasing your clear liquid intake, a cool mist humidifier at your bedside, and fever medication. Often, a repeat chest X-ray is performed in a few weeks--even if you feel better--to ascertain whether the infection has completely resolved and no underlying lung problem is present. You should call the physician if you develop persistent vomiting, high fever that does not respond to fever medication, increasing shortness of breath, confusion, or lethargy. Also, failure to improve within two to three days is an indication for re-examination. Take prescribed medications as instructed. Stop smoking. Do not drink beer, wine or whiskey. Return here as needed for new or worsening symptoms: Pain that is worsening or unimproved Uncontrolled vomiting High fever or shaking chills Overall worsening Follow-up with your primary provider or referral physician next 3 to 5 days. Prescriptions: Azithromycin 250 mg PO ASDIR PRN #6 tablet PRN Reason: Prednisone [Deltasone 20 mg Tablet] 2 tab PO DAILY 5 Days tablet Oxycodone HCl/Acetaminophen [Percocet 5-325 mg Tablet] 1 tab PO Q6H PRN 5 Days #20 tablet PRN Reason:
[2020-11-17 06:57] LABS: INTERNATIONAL RATION (INR) 1.01; PROTHROMBIN TIME 13.5 SEC (11.4-15.4)
[2020-11-17 06:58] LABS: PARTIAL THROMBOPLASTIN TIME 34.1 SEC (23.5-35.8)
[2020-11-17 07:00] LABS: D-DIMER 0.29 ug/mL (0.00-0.50)
[2020-11-17 07:02] LABS: ALCOHOL 59 mg/dL (NONE DETECTED); ALKALINE PHOSPHATASE 156 U/L (38-126); ANION GAP 8 (5-19); ASPARTATE AMINO TRANSFERASE 51 U/L (17-59); BILIRUBIN,DIRECT 0.2 mg/dL (0.0-0.4); BILIRUBIN,TOTAL 0.5 mg/dL (0.2-1.3); BLOOD UREA NITROGEN 8 mg/dL (7-20); CALCIUM 9.1 mg/dL (8.4-10.2); CARBON DIOXIDE 26 mmol/L (22-30); CHLORIDE 91 mmol/L (98-107); CREATINE KINASE 209 U/L (55-170); GLUCOSE 106 mg/dL (75-110); POTASSIUM 3.6 mmol/L (3.6-5.0); TOTAL PROTEIN 6.9 g/dL (6.3-8.2)
[2020-11-17 07:09] LABS: ABSOLUTE EOSINOPHILS # (AUTO) 0.1 10^3/uL (0.0-0.6); ABSOLUTE LYMPHOCYTES (AUTO) 1.3 10^3/uL (0.5-4.7); ABSOLUTE MONOCYTES (AUTO) 0.6 10^3/uL (0.1-1.4); ABSOLUTE NEUT (AUTO) 4.4 10^3/uL (1.7-8.2); BASOPHILS % (AUTO) 0.4 % (0-2); EOSINOPHILS % (AUTO) 1.4 % (0-6); HEMATOCRIT 36.6 % (37.9-51.0); HEMOGLOBIN 13.2 g/dL (13.5-17.0); LYMPHOCYTES % (AUTO) 20.1 % (13-45); MEAN CORPUSCULAR HEMOGLOBIN 34.3 pg (27.0-33.4); MEAN CORPUSCULAR HGB CONC 36.1 g/dL (32.0-36.0); MEAN CORPUSCULAR VOLUME 95 fl (80-97); MONOCYTES % (AUTO) 9.3 % (3-13); PLATELET COUNT 286 10^3/uL (150-450); RED BLOOD COUNT 3.85 10^6/uL (4.35-5.55); SEGMENTED NEUTROPHILS % (AUTO) 68.8 % (42-78); TOTAL CELLS COUNTED % (AUTO) 100 %; WHITE BLOOD COUNT 6.3 10^3/uL (4.0-10.5)
[2020-11-17 07:13] LABS: NT PRO BNP 39 pg/mL (<125)
[2020-11-17 07:16] LABS: TROPONIN I < 0.012 ng/mL
[2020-11-17 07:32] LABS: A TYPE INFLUENZA AG NEGATIVE (NEGATIVE); B INFLUENZA AG NEGATIVE (NEGATIVE)
--- NOTE | 2020-11-17 07:47 | RADIOLOGY REPORT (SQ) ---
CHEST X-RAY 1 VIEW on 11/17/2020 at 7:07 AM CLINICAL INDICATION: Left-sided chest and back pain COMPARISON: 10/17/2020 FINDINGS: The lungs are clear. Cardiac, hilar and mediastinal contours are within normal limits. Pulmonary vascularity is within normal limits. No bony abnormality is noted. IMPRESSION: No active disease.
[2020-11-17] MEDS ORDERED: ONDANSETRON HCL INJ/PF 4 MG/2 ML SDV IV ONE (08:23)
[2020-11-17] MEDS ORDERED: NORMAL SALINE 1000 ML 1,000 ML IV ONE (09:03)
[2020-11-17 10:03] LABS: APPEARANCE,URINE CLEAR; BILIRUBIN,URINE NEGATIVE (NEGATIVE); COLOR,URINE YELLOW; GLUCOSE, URINE NEGATIVE (NEGATIVE); KETONES,URINE NEGATIVE (NEGATIVE); PROTEIN,URINE NEGATIVE (NEGATIVE); URINE SPECIFIC GRAVITY 1.008; UROBILINOGEN,URINE NEGATIVE mg/dL (<2.0)
[2020-11-17 10:08] LABS: URINE BARBITURATES SCREEN NEGATIVE; URINE BENZODIAZEPINES SCREEN NEGATIVE; URINE COCAINE SCREEN NEGATIVE; URINE MARIJUANA (THC) SCREEN NEGATIVE; URINE METHADONE SCREEN NEGATIVE; URINE PHENCYCLIDINE SCREEN NEGATIVE
--- NOTE | 2020-11-17 11:12 | RADIOLOGY REPORT (SQ) ---
EXAM DESCRIPTION: CTA CHEST IMAGES COMPLETED DATE/TIME: 11/17/2020 10:55 am REASON FOR STUDY: severe left pleuritic pain COMPARISON: Same day radiograph TECHNIQUE: CT scan of the chest performed using helical scanning technique with dynamic intravenous contrast injection. Images reviewed with lung, soft tissue and bone windows. Reconstructed coronal and sagittal MPR images reviewed. Additional 3 dimensional post-processing performed to develop Maximal Intensity Projection images (SC P). All images stored on PACS. All CT scanners at this facility use dose modulation, iterative reconstruction, and/or weight based d osing when appropriate to reduce radiation dose to as low as reasonably achievable (ALARA). [facility]: Dose Right [facility]: CareDose [facility]: Dose Right [facility]: Teradose 4D [facility]: scenios CONTRAST TYPE AND DOSE: contrast/concentration: Isovue 350.00 mmol/ml; Total Contrast Delivered: 74. 0 ml; Total Saline Delivered: 65.0 ml Contrast bolus adequate for pulmonary arteries and aorta. RENAL FUNCTION: None required. The patient is less than 50 years old. RADIATION DOSE: CT Rad equipment meets quality standard of care and radiation dose reduction techniq ues were employed. CTDIvol: 12.4 - 16.9 mGy. DLP: 483 mGy-cm. . LIMITATIONS: None. FINDINGS: LUNGS AND PLEURA: Mild dependent consolidation bilaterally, likely hypoventilatory change. No pleural effusion or pneumothorax. No new suspicious pulmonary masses. AORTA AND GREAT VESSELS: No aneurysm. No dissection. HEART: No pericardial effusion. No significant coronary artery calcifications. PULMONARY ARTERIES: No emboli visualized in the main pulmonary arteries or the segmental branches. HILAR AND MEDIASTINAL STRUCTURES: No identified masses or abnormal nodes. HARDWARE: None in the chest. UPPER ABDOMEN: Hepatic steatosis. No acute findings on the limited evaluation. THYROID AND OTHER SOFT TISSUES: No masses. No adenopathy. BONES: No acute or significant finding. 3D MIPS: Confirm above findings. OTHER: No other significant finding. IMPRESSION: No evidence of pulmonary embolus. Mild dependent bilateral consolidation, likely atelectatic change. Hepatic steatosis. COMMENT: Quality ID # [id number]: Final reports with documentation of one or more dose reduction techniques (e.g., Automated exposure control, adjustment of the mA and/or kV according to patient size, use of iterative reconstruction technique) TECHNICAL DOCUMENTATION: JOB ID: [id number] [employer]- All Rights Reserved Reading location - IP/workstation name: [email or web address]
[2020-11-17] MEDS ORDERED: CEFTRIAXONE INJ 1000 MG VIAL IV ONE (11:17)
[2020-11-17] MEDS ORDERED: OXYCODONE-ACETAMINOPHEN 5-325 MG TABLET PO ONE (11:27)
[2020-11-17] MEDS ORDERED: METHYLPREDNISOLONE INJ 125 MG/2 ML SDV IV ONE (11:27)
[2020-11-17 12:55] VITALS: BP 170/111
--- NOTE | 2020-11-18 17:20 | EKG REPORT ---
SEVERITY:- NORMAL ECG - SINUS RHYTHM : Confirmed by: Henna Butt MD 18-Nov-2020 17:19:54
== END 2020-11-17 12:56 | disposition home or self-care (01) ==
LOC: ER 06:06
DX: J18.9 Pneumonia, unspecified organism (principal); J44.1 Chronic obstructive pulmonary disease with (acute) exacerbation; R09.1 Pleurisy; R07.89 Other chest pain
CPT/HCPCS: 93005; 99285; 96361; 96375; 96365; 36415; 80307 ×2; 82550; 83735; 85025; 85610; 85730; 80053; 81001; 84484; 85379; 87804; 83880; 71045; 71275; 93010; J2930; J1885; J0696; J2405; J7030